=== PATIENT | male | born 1960 | race Caucasian/White ===

== ENCOUNTER 2024-10-02 06:19 | Observation (INO) | payer BC, SELFPAY ==
[2024-10-02] VITALS (34 sets, daily range): BP systolic 110–152; BP diastolic 65–88; PULSE 57–70; RESP 16–25; TEMP 36.2–36.9; O2SAT 93–97; BMI 24.2
--- NOTE | 2024-10-02 06:49 | W.ANESPRE ---
General Info Date of Service Date Performed: 10/02/24 Height: 5 ft 11 in Weight: 78.7 kg Body Mass Index (BMI): 24.2 Surgical Procedure: Operation Date: 10/02/24 07:30 Proposed Procedure Side Surgeon p Hernia Paraesophageal Laparoscopic w/Toupet Fundoplication & Mesh Rohan Berumen MD Meds Allergies and Home Medications Allergies Allergy/AdvReac Type Severity Reaction Status Date / Time levofloxacin Allergy Unknown muscle pain Verified 10/02/24 06:44 Home Medication ?Medication ?Instructions ?Recorded amlodipine 2.5 mg tablet 2.5 mg PO DAILY 08/14/24 aspirin 81 mg tablet,delayed 81 mg PO DAILY 08/14/24 release multivitamin 1 tab PO DAILY 08/14/24 omeprazole 20 mg capsule,delayed 20 mg PO BID 08/14/24 release sucralfate 1 gram tablet 1 g PO QACHS 08/14/24 tadalafil 5 mg tablet 5 mg PO DAILY 08/14/24 sertraline 50 mg tablet 50 mg PO DAILY 10/01/24 Current Visit Medications: Current Medications Generic Name Dose Route Start Last Admin Trade Name Freq PRN Reason Stop Dose Admin Heparin Sodium (Porcine) 5,000 units 10/02/24 06:00 Heparin 5,000 Units/Ml Vial SC 10/02/24 16:30 NOW ON LICENSE OF [facility] Ringer's Solution 1,000 mls @ 80 mls/hr 10/02/24 06:00 IV 10/26/24 23:59 INFUSION ON LICENSE OF [facility] IV Miscellaneous Supplies 1 each 10/02/24 06:00 Iv Access IV 10/26/24 23:59 DIRECTED GARRY Sodium Chloride 0 ml 10/02/24 06:00 Normal Saline Flush 10 Ml Syr IV 10/26/24 23:59 PRN PRN Sodium Chloride 0 ml 10/02/24 06:00 Normal Saline 10 Ml Vial IJ 10/26/24 23:59 DIRECTED PRN Sterile Water 0 ml 10/02/24 06:00 Water,Injection,Sterile 10 Ml Vial IJ 10/26/24 23:59 DIRECTED PRN PFSH Active Problems Active Problems: Problem Status Onset Code Hypertension Chronic I10 Hiatal hernia Chronic K44.9 Ulcer of esophagus without bleeding Acute K22.10 Medical History Medical History (Updated 10/01/24 @ 12:21 by Nick Mckinley) Tubular adenoma of colon Tinnitus of left ear Skin lesion Prostatic hypertrophy Peptic ulcer Left middle cerebral artery stroke 2020 Knee pain, left GERD (gastroesophageal reflux disease) Hematuria Generalized anxiety disorder Dissection of left carotid artery Decreased libido Constipation Surgical History Surgical History History of esophagogastroduodenoscopy (EGD) History of colonoscopy with polypectomy History of carotid endarterectomy 02/2021 History of adenoidectomy Tobacco Smoking/Tobacco Use Status: Never Passive smoking exposure: No Alcohol Alcohol Intake: current Alcohol intake frequency: a few times a week Alcohol type: wine Substance Use Substance use: Never Substance use type: does not use Vital Signs and Lab Results Vital Signs Most Recent Vital Signs in EMR: Most Recent Vital Signs Temp Pulse Resp BP Pulse Ox 36.7 C 60 16 118/88 97 10/02/24 06:41 10/02/24 06:41 10/02/24 06:41 10/02/24 06:41 10/02/24 06:41 Lab Results Blood Type / Crossmatch: No Data to Display Complete Blood Count: No Data to Display Complete Metabolic Panel: No Data to Display Liver Function Panel: No Data to Display Coagulation Panel: No Data to Display Cardiac Panel: No Data to Display Arterial Blood Gas: No Data to Display Venous Blood Gas: No Data to Display Pancreas Panel: No Data to Display Thyroid Panel: No Data to Display Infectious Disease: No Data to Display Blood Cultures: No Data to Display Toxicology Panel: No Data to Display Anesthesia Assessment and Plan Anesthesia History Personal History: No History of Anesthesia Complications Family History: No Family History of Anesthesia Complications Exercise Tolerance Exercise Tolerance: Metabolic Equivalents>4 Pertinent Negatives Pertinent Negatives: No Major Cardiovascular Symptoms or Complaints and No Major Pulmonary Symptoms or Complaints Cardiac & Pulmonary Exam Cardiac Exam: Normal S1/S2 Heart Sounds Pulmonary Exam: Clear Bilateral Breath Sounds and No cough or Cold Implantable Cardiac Device Does patient have a Pacemaker or an ICD?: No Airway Exam Known Difficult Airway: No Mallampati Class: 2 Mouth Opening: Normal (> 3cm) Thyromental Distance: Greater than 3 cm Neck Range of Motion: Full ROM Neck Circumference: Normal Teeth Condition: Normal Dentition ASA Classification ASA Score: ASA 2 Emergency Case?: No NPO Status NPO Status: NPO Clears >2 hours, Solids >8 hours Anesthesia Plan Resuscitation Status: Full Code Anesthesia Technique: General Anesthesia Airway Planned: Endotracheal Tube Pain Management: Surgeon and patient request nerve block and Other (Bilateral MICHAEL) Monitors Used: Standard Monitors
[2024-10-02] MEDS: Lactated Ringers 1,000 ML 80 ML IV ×2 (06:55→12:34)
[2024-10-02] MEDS: Heparin 5,000 UNITS/ML VIAL 5000 UNITS SC ×2 (07:05→18:15)
--- NOTE | 2024-10-02 07:40 | W.SURGCON ---
Date of service: 10/02/24 Time of Service: 07:41 Assessment and Plan Assessment and plan (1) Hiatal hernia: Status: Chronic Assessment and plan: 64-year-old man with a medium?large type I sliding hiatal hernia and a Hill grade 4 defect which gives him pretty severe esophagitis and GERD. He wants a 270 degree fundoplication along with a hiatal hernia repair. Overall plan: Laparoscopic hiatal hernia repair, mesh, toupet fundoplication History of Present Illness Narrative: 64-year-old man here for hiatal hernia and Toupet fundoplication PFSH All Active Problems Hypertension (Chronic) Hiatal hernia (Chronic) Ulcer of esophagus without bleeding (Acute) Medical History Tubular adenoma of colon Tinnitus of left ear Skin lesion Prostatic hypertrophy Peptic ulcer Left middle cerebral artery stroke 2020 Knee pain, left GERD (gastroesophageal reflux disease) Hematuria Generalized anxiety disorder Dissection of left carotid artery Decreased libido Constipation Surgical History History of esophagogastroduodenoscopy (EGD) History of colonoscopy with polypectomy History of carotid endarterectomy 02/2021 History of adenoidectomy Social History Smoking/Tobacco Use Status: Never Smoking risk assessment performed?: Yes Alcohol Intake: current Alcohol Intake frequency: a few times a week Alcohol type: wine Drug use: Never Substance use type: does not use Housing: house Do you feel safe at home: Yes Do you feel safe in your relationship?: Yes Additional [facility]: [facility] N[facility] Exam Narrative: Gen: Non-toxic, comfortable and interactive Neuro: Alert and oriented x3 Psych: Good mood and affect. Good insight and understanding into condition. Chest: Non-labored breathing, no wheezing, no visible shortness of breath. Heart: Regular Results Last Vital Signs Temp 98.1 F 10/02/24 06:41 Pulse 60 10/02/24 06:41 Resp 16 10/02/24 06:41 BP 118/88 10/02/24 06:41 Pulse Ox 97 10/02/24 06:41
[2024-10-02] MEDS: Bupivacaine 0.25% Pres-Free 30 ML VIAL (08:42)
--- NOTE | 2024-10-02 09:19 | W.ANESNERVE ---
Nerve Block Single Injection Procedure Date and Time Date Performed: 10/02/24 Procedure Start: 07:50 Location Where Procedure Performed Procedure Location: Operating Room Procedure Stop: 08:01 Reason Performed: Postoperative Analgesia Requesting Provider: Rohan Berumen Timeout Performed Timeout Performed: Yes Monitoring Used ECG, Blood Pressure, SpO2 and See EMR for corresponding vital signs Sterility Sterility: Hand Hygiene, Surgical Mask, Sterile Gloves, Eye Protection and Chlorhexidine Sedation Given During Procedure Sedation Given (Indicate Dose Given): Versed IV Dose:: 2 mg Patient Mental Status Patient Mental Status: Sedate with meaningful communication Nerve Block 1st Nerve Block: Laterality: Bilateral Block Type: Erector Spinae (Upper) Ultrasound Image Saved?: Yes Needle / Catheter Used: 100mm SonoPlex II Local Anesthetic Bolus (Indicate Dose Given): Lidocaine used for local infiltration of skin, Injected in 3-5ml increments after negative blood aspiration, Half of Total block solution given into each side, Bupivacaine 0.25% Dose:: 40 ml and Exparel Dose:: 20 ml Additives (Indicate Dose Given): None Ultrasound: Sterile probe cover and gel used Nerve Stimulator: Not Used Paresthesia: None Procedure Tolerated: No Complications and Patient tolerated well Procedure Outcome: Successful Performed By: Garland Le Supervised By: Sofy Rdz
--- NOTE | 2024-10-02 11:46 | W.PM.OP ---
Operative Note Operative Note Refer to Anesthesia Record Procedure Description: Procedures: 1. Laparoscopic hiatal hernia repair with mesh(Phasix ST) 2. Laparoscopic Toupet(270 degree) fundoplication Preoperative Diagnosis: symptomatic type I sliding hiatal hernia, GERD w/ esophagitis Postoperative Diagnosis: Same Surgeon: Jasper Berumen Assist: Lauren Anesthesia: General Anesthesiologist: Dasha Indication: Symptomatic type 1 hiatal hernia (~3cm slide, Hill Grade 4 defect). Findings: A moderate-sized type I hiatal hernia was present with a large hiatal defect. This was repaired with suture repair primarily at the pati and then buttressed with a Phasix ST mesh. A 270 degree Toupet fundoplication was performed over a 56 bhutanese bougie. Complications: None Estimated Blood Loss: Minimal Specimens removed: None Grafts or implants: Phasix ST mesh Procedure in detail: Written consent was obtained from the patient who was in agreement the risks, the benefits and the indications for the procedure. The patient was taken to the operating suite - Anesthesia performed a block and then he was laid supine on the operating table. General anesthesia was administered which was tolerated very well. He was then placed in lithotomy with arms out. Next we prepped and draped the abdomen in sterile fashion. A timeout was performed. When we were all in agreement we began the procedure. Just to the left of the bellybutton a small stab incision was made and a 5 mm Optiview trocar was used to enter into the abdomen under direct visualization. Four-quadrant diagnostic laparoscopy was performed and was grossly within normal limits. The liver was inspected and was not cirrhotic. 3 more trochars were placed across the abdomen under visualization. The 12 mm working port was placed in the mid clavicular line on the left side. A Kedar liver retractor was used to retract the liver anteriorly and was placed in the epigastric location through a 4-5 mm defect. The patient was placed in steep reverse Trendelenburg and we had good visualization of the hiatus. The usual segment of short gastrics which were tightly adhered against the spleen were taken down with the LigaSure effectively releasing the stomach fundus away from spleen and off of the diaphragm and pati edges. Going superior from there, I then found the left pati of the diaphragm and incised the peritoneum overlying it from posterior, circumferentially up to the anterior portion of the esophagus. The anterior(left) vagus nerve was visualized against the esophagus and preserved. I then turned my attention to opening pars flaccida and took down the attachments leading up to the right pati which was easily identified and again peritoneum was opened over top of this. I then ensured that all the peritoneum edges on the posterior aspect were divided(no hernia sac remaining). The posterior(right) vagus nerve was also easily identified and was bluntly and gently swept against the esophagus, preserving it by keeping it away from the dissection planes by keeping it close to the esophagus. I was able to circumferentially clear the esophagus at the level of the hiatus and passed a [place] drain around this for retraction for the mediastinal dissection. Next, a combination of mostly gentle, blunt dissection as well as dissection with the LigaSure was performed to mobilize the esophagus within the mediastinum. I took care to dissect very high into the mediastinum to facilitate excellent mobilization. This was achieved and we had complete mobilization without any significant difficulty and also verified that this vusually gave us significant intra-abdominal length without any tension. Satisfied with circumferential dissection within the mediastinum and the mobilization of the esophagus, we verified that at least ~3 cm of esophagus was intra-abdominal. Further, this stayed intra-abdominal without any retraction or tension. At this point I closed the left and right crura primarily using an Endo Stitch with interrupted sutures. This facilitated a nice closure and did not result in any unusual tension and I ensured that it was not too tight around the esophagus. I also approximated the crura with an interupted stitch anteriorly, to avoid acute angulation of the esophagus posteriorly. Next I fixated the Phasix ST mesh (that I had pre-cut to size on the back table) in place with a single suture on each side of it through the left and right crura individually. At this point anesthesia advanced a 56 Japanese bougie gently down the esophagus while we watched with the laparoscope. The crural closure was snug around this, but not too tight. I was able to grab the fundus of the stomach and bring it around behind the esophagus without any tension or difficulty. I had excellent mobilization, it was floppy and loose and I was able to get the fundus completely wrapped around the esophagus and GE junction over top of the 56 Japanese bougie and no tension was noted. I then used 2-0 silk sutures and sutured about a 2-2.5cm length of fundus to each side of the esophagus and down over the GE junction, completing a 270 degree Toupet fundoplication. I ensured that it was loose and floppy and not too tight. I placed a single stitch through the posterior aspect of the wrapped fundus to the right pati to prevent the wrap from moving up or down at the GE junction. Hemostasis was excellent, the wrap lay very nicely and had no tension anywhere. All the needles were removed. The Kedar retractor was removed. Hemostasis was again verified to be excellent. The 12 mm port site was closed with 0 Vicryl using a James Cindy. All trochars were removed under visualization and the pneumoperitoneum was evacuated. We closed the skin with running Monocryl and placed skin glue over top of the wounds. The sponge, instrument and sharps counts were correct x3 at the end of the procedure. The patient tolerated the procedure well and was taken to the PACU in hemodynamically stable condition. Date of Procedure: 10/02/24
[2024-10-02] MEDS: Normal Saline Flush 10 ML SYR IV ×3 (12:45→22:46)
--- NOTE | 2024-10-02 13:12 | W.ANESPOSTOP ---
Postoperative Evaluation Date, Time and Location Date Performed: 10/02/24 Time Performed: 12:11 Patient Location: PACU Vital Signs Most Recent Imported Vital Signs: Most Recent Vital Signs Temp Pulse Resp BP Pulse Ox 36.5 C 60 16 125/72 97 10/02/24 12:48 10/02/24 12:48 10/02/24 12:48 10/02/24 12:48 10/02/24 12:48 Pain Score Most Recent Pain Score: Most Recent Pain Score Pain Level 5 10/02/24 12:48 Assessment Mental Status: Arousable with meaningful communication Airway and Respiratory Function: Patent airway with normal (patient baseline) respiratory exam Cardiovascular Function: Hemodynamically Stable Hydration Status: Adequately Hydrated Nausea & Vomiting: No Nausea or Vomiting Pain: Pain is tolerable per patient Peripheral Nerve Block: Regional nerve block not resolved at time of post operative discharge
--- NOTE | 2024-10-02 13:38 | W.PC.ACHO ---
Registration Status: Primary Language: Preferred Language: Medical / Surgical History (Last Reviewed 10/02/24 @ 07:17 by Elvira Monroy RN) Tubular adenoma of colon Tinnitus of left ear Skin lesion Prostatic hypertrophy Peptic ulcer Left middle cerebral artery stroke Knee pain, left GERD (gastroesophageal reflux disease) Hematuria Generalized anxiety disorder Dissection of left carotid artery Decreased libido Constipation (Last Reviewed 10/02/24 @ 07:17 by Elvira Monroy RN) History of esophagogastroduodenoscopy (EGD) History of colonoscopy with polypectomy History of carotid endarterectomy History of adenoidectomy Most Recent Vital Signs Temperature 36.5 C 10/02/24 12:48 Temperature Source Temporal Artery Scan 10/02/24 12:48 Pulse 60 10/02/24 12:48 Pulse Rhythm Regular 10/02/24 06:41 Pulse 61 10/02/24 12:10 Respiratory Rate 16 10/02/24 12:48 Respiratory Depth Normal 10/02/24 06:41 Blood Pressure 125/72 10/02/24 12:48 Blood Pressure Mean 89 10/02/24 12:48 Pulse Oximetry 97 10/02/24 12:48 Respiratory End-tidal CO2 36 10/02/24 12:06 Oxygen Delivery Method Room Air 10/02/24 12:48 Oxygen Flow Rate 0 10/02/24 12:48 Pain Level 5 10/02/24 12:48 Allergies levofloxacin Allergy (Unknown, Verified 10/02/24 06:44) muscle pain Active Medications Generic Name Dose Route Start Last Admin Trade Name Freq PRN Reason Stop Dose Admin Heparin Sodium (Porcine) 5,000 units 10/02/24 06:00 10/02/24 07:05 Heparin 5,000 Units/Ml Vial SC 10/02/24 16:30 5,000 units NOW GARRY Administration Ringer's Solution 1,000 mls @ 80 mls/hr 10/02/24 06:00 10/02/24 12:34 IV 10/26/24 23:59 80 mls/hr INFUSION GARRY Administration Sodium Chloride 0 ml 10/02/24 06:00 10/02/24 12:45 Normal Saline Flush 10 Ml Syr IV 10/26/24 23:59 10 ml PRN PRN Administration IV IV Catheter Type [Right Hand] Peripheral IV IV Catheter Gauge [Right Hand] 20 Diet Orders Category Date Time Status Regular/Normal [DIET] Nutrition 10/02/24 Lunch Active Intake and Output - 24 Hour Total 08/20/24 14:34 thru 10/02/24 12:47 Intake Total 713.333 Output Total 10 Balance 703.333 Weight 78.7 kg Intake: IV 713.333 Output: Estimated Blood Loss 10 Other: Emesis Description None Falls Risk Assessment History of Falls No History 10/02/24 12:47 Contributing Factors No Factors 10/02/24 12:47 Ambulatory Aids Independent 10/02/24 12:47 Tubes/Lines W/no contributing factors 10/02/24 12:47 Gait Evaluation No gait disturbance 10/02/24 12:47 Cognition No cognitive impairment 10/02/24 12:47 Fall Total Score 10 10/02/24 12:47 Level of Risk Standard/Low Risk 10/02/24 12:47 Problems (Last Reviewed 10/02/24 @ 07:17 by Elvira Monroy RN) Hiatal hernia (Chronic) v v v v v v v v v Sending and/or Receiving Nurses: Please use comment section below to note any information pertinent to the patient hand-off not included above. Information / Comments: Report received from: Report received from Violeta PATEL PACU 12:11.
[2024-10-02] MEDS: Bisacodyl 5 MG TABEC 10 MG PO (15:48)
[2024-10-02] MEDS: ACETAMINOPHEN 1,000 MG/100 ML BTL 400 MG IVPB ×2 (15:48→22:46)
[2024-10-02] MEDS: Ondansetron 4 MG/2 ML VIAL IVP (19:34)
[2024-10-03] MEDS: ACETAMINOPHEN 1,000 MG/100 ML BTL 400 MG IVPB (05:18)
[2024-10-03] MEDS: Heparin 5,000 UNITS/ML VIAL 5000 UNITS SC (05:19)
[2024-10-03 07:19] VITALS: BP 135/81; PULSE 61; RESP 18; TEMP 36.7; O2SAT 97
[2024-10-03] MEDS: Normal Saline Flush 10 ML SYR IV (08:16)
--- NOTE | 2024-10-03 09:17 | PDOC.CMIN ---
Date of service: 10/03/24 Time of Service: 09:17 Care Management Initial Assmt Advance Directives Advance Directives: Do you have an Advance Directive: AD On File at [facility]: N 09/27/24 10:25 Date Asked 10/02/24 09/27/24 10:25 AD Date Reviewed COLST On File at [facility] COLST Date Scanned Code Status Resuscitation Status Full Code Care Team Visit Care Team Role Provider Type Unknown Unknown Primary Care Provider STAFF PHYSICIAN Rohan Berumen MD Admit Provider [facility] STAFF PHYSICIAN Attending Provider Social Determinants of Health Screening Social Determinants of health last assessed in clinic: 10/02/24 Will the Patient Participate in the Screening?: Yes Do you worry about having a steady place to live?: no Problems where you live: no known problems In the past 12 months, have you had to go without electric, gas, oil or water in your home?: no Has lack of transportation kept you from medical appointments or from doing things needed for daily living?: no Has anyone in your life made you feel unsafe or unsupported?: no How hard is it for you to pay for the very basics like food, housing, medical care, and heating? Would you say it is:: Not hard at all Do you want help finding or keeping work or a job?: I do not need or want help If for any reason you need help with day-to-day activities such as bathing, preparing meals, shopping, managing finances, etc., do you get the help you need?: I get all the help I need How often do you feel lonely or isolated from those around you?: Never Do you speak a language other than Slovak at home?: No Does the patient want assistance with any of the above?: No PFSH All Active Problems Hypertension (Chronic) Hiatal hernia (Chronic) Ulcer of esophagus without bleeding (Acute) Medical History Tubular adenoma of colon Tinnitus of left ear Skin lesion Prostatic hypertrophy Peptic ulcer Left middle cerebral artery stroke 2020 Knee pain, left GERD (gastroesophageal reflux disease) Hematuria Generalized anxiety disorder Dissection of left carotid artery Decreased libido Constipation Surgical History History of esophagogastroduodenoscopy (EGD) History of colonoscopy with polypectomy History of carotid endarterectomy 02/2021 History of adenoidectomy Social History Smoking/Tobacco Use Status: Never Smoking risk assessment performed?: Yes Alcohol Intake: current Alcohol Intake frequency: a few times a week Alcohol type: wine Drug use: Never Substance use type: does not use Housing: house Do you feel safe at home: Yes Do you feel safe in your relationship?: Yes Additional Social history: [facility]
--- NOTE | 2024-10-03 10:17 | W.PM.DSUDISC ---
Date of service: 10/03/24 Discharge Plan Disposition Patient Disposition: Home Condition: Good Discharge Details Admit Date/Time: 10/02/24 06:19 Admit Provider: Rohan Berumen Attending Provider: Rohan Berumen Primary Care Provider: Unknown,Unknown Hospital Course Hospital Course: Ish presented for an elective laparoscopic hiatal hernia repair with toupet fundoplication. His procedure went well and there were no complications. On postoperative day 1 he was tolerating clear liquids, had a benign abdominal exam, was hemodynamically stable and ready for home. He was discharged home on a pur?ed diet for 2 weeks. No heavy lifting or strenuous activity for 6 to 8 weeks. He will be seen in follow-up in the office in 2 weeks at which point we will advance his diet. Home Meds and New Rx's Prescriptions: No Action amlodipine 2.5 mg tablet 2.5 mg PO DAILY aspirin 81 mg tablet,delayed release (DR/EC) 81 mg PO DAILY multivitamin Tablet 1 tab PO DAILY omeprazole 20 mg capsule,delayed release(DR/EC) 20 mg PO BID sucralfate 1 gram tablet 1 g PO QACHS tadalafil 5 mg tablet 5 mg PO DAILY sertraline 50 mg tablet 50 mg PO DAILY Discharge Instructions Additional Instructions: Given to him and his in person. Stand Alone Forms: Nursing Discharge Form Referrals: Rohan Berumen MD [ [facility] STAFF PHYSICIAN] - 10/10/24 9:45 am (Call in 2 weeks for a follow up) Activity:: no heavy lifting or pul Equipment/Supplies:: No Equipment Needed Diet:: pureed Discharge Orders Discharge Orders: Discharge Order (Routine); Ordered 10/03/24 Ordered By: Rohan Berumen Discharge Data Discharge Date/Time-TO BE ENTERED AT DEPARTURE: 10/03/24 10:08 DS: Diagnosis Discharge Diagnosis (1) Hiatal hernia: Status: Chronic Asessment and Plan: Postop day 1 from hiatal hernia repair. He is hemodynamically stable and doing well. No dysphagia, no uncontrolled pain. He is ready for discharge home. Pur?ed diet only for 2 weeks which was discussed preoperatively. Reaffirmed no heavy lifting or strenuous activities for the next 6 to 8 weeks.
--- NOTE | 2024-10-03 10:20 | NUR.NOTE ---
Verbal order to discharge patient given by Dr. Berumen to Kita Maynard LPN, witnessed by Charge Nurse Adali Lam at 09:41, on the morning of October 03, 2024. Verbal order given due to surgeons inability to gain access to [facility] at desired time of discharge. Dr. Berumen stated he would complete discharge paperwork when accessed to [facility] is achieved. Kita Maynard LPN witnessed surgeon provide education to patient on how to proceed with post op diet over the course of the next two weeks, to plan to call to schedule a follow up appointment for two weeks from the day of sugery (October 02, 2024) and conservative physical activity over the next 6-8weeks. Nurse educated patient on signs and symptoms of infection to monitor for at surgical incision sites. Patient discharged from unit at 10:08, escorted by nurse, driven home by spouse in private vehicle. Note:
== END 2024-10-03 10:08 | disposition home or self-care (01) ==
LOC: MS 10-03 02:45 → PDS 10-03 02:45
PROVIDERS: Admitting Provider Student in an Organized Health Care Education/Training Program; Visit Provider Student in an Organized Health Care Education/Training Program
PROC: 0BUT4JZ Supplement Diaphragm with Synthetic Substitute, Percutaneous Endoscopic Approach (ICD-10-PCS; CPT 43282; principal; 2024-10-02 07:30)
DX: K44.9 Diaphragmatic hernia without obstruction or gangrene (principal); K21.00 Gastro-esophageal reflux disease with esophagitis, without bleeding; G89.18 Other acute postprocedural pain; Z86.73 Personal history of transient ischemic attack (TIA), and cerebral infarction without residual deficits; F41.1 Generalized anxiety disorder; K59.00 Constipation, unspecified; Z79.899 Other long term (current) drug therapy
CPT/HCPCS: 43282; 64450; 76942; C1781; G0378; J0131; J0665; J0666; J1100; J1644; J1885; J2003; J2250; J2371; J2405; J2704; J3475